=== PATIENT | female | born 1955 | race Caucasian/White ===

== ENCOUNTER 2016-11-17 15:38 | Emergency (ER) | payer MEDICAID ==
--- NOTE | 2016-11-17 16:19 | ED Physician Chart ---
Chief Complaint/HPI - Patient Information Date Seen:: 11/17/16 Time Seen:: 15:46 Chief Complaint:: Toothache for 4 days. History of Present Illness:: L lower toothache for 4 days. Pt has pending dental appointment at [facility] on 11/19/16. No fever. Taking po well without N/V/D. Allergies:: Allergies Allergy/AdvReac Type Severity Reaction Status Date / Time No Known Allergies Allergy Verified 11/17/16 16:06 Vitals:: Vital Signs - 8 hr 11/17/16 16:08 Temp 98.8 F HR 105 RR 18 BP 147/89 O2 Sat % 96 Historian:: Patient Family MD/PCP:: Unknown LMP:: Postmenopausal. Review:: Nurse's Note Reviewed Review of Systems - Review of Systems General/Constitutional: No fever, No chills, No weight loss, No weakness, No diaphoresis, No edema, No loss of appetite Skin: No skin lesions, No rash, No bruising Head: No headache, No light-headedness Eyes: No loss of vision, No pain, No diplopia ENT: No earache, No nasal drainage, No sore throat, No tinnitus, Other ( Toothache, see HPI.) Neck: No neck pain, No swelling, No thyromegaly, No stiffness, No mass noted Cardio Vascular: No chest pain, No palpitations, No PND, No orthopnea, No edema Pulmonary: No SOB, No cough, No sputum, No wheezing GI: No nausea, No vomiting, No diarrhea, No pain, No melena, No hematochezia, No constipation, No hematemesis G/U: No dysuria, No frequency, No hematuria Musculoskeletal: No bone or joint pain, No back pain, No muscle pain Endocrine: No polyuria, No polydipsia Psychiatric: No prior psych history Past Medical History - Past Medical History Past Medical History: No significant medical hx Family History: None Social History: Non Smoker, No Alcohol, No Drug Use, Legally, Employed , Other (lives with a friend.) Employment:: investigative agent. Surgical History: None Psychiatricy History: None Medication: Reviewed Physical Exam - Physical Examination General/Constitutional: Awake, Well-developed, well-nourished, Alert, No distress, GCS 15, Non-toxic appearing, Ambulatory Other Gen/Cons comments:: Breathes comfortably, speaks clearly, and ambulates without difficulty. Head: Atraumatic Eyes: Lids, conjuctiva normal, PERRL, EOMI Skin: Nl inspection, No rash, No skin lesions, No ecchymosis, Well hydrated, No lymphadenopathy ENMT: External ears, nose nl, TM canals nl, Nasal exam nl, Oropharynx nl, Tonsils nl Other ENMT comments:: Tenderness at 2nd molar tooth at left lower jaw with loss of height and discoloration c/w dental decay. Neck: Nontender, Full ROM w/o pain, No JVD, No nuchal rigidity, No mass, No stridor Respiratory: Nl effort/Exclusion, Clear to Auscultation, No Wheeze/Rhonchi/Rales Cardio Vascular: RRR (with VR 96), No murmur, gallop, rubs, NL S1 S2 Extremities: No edema Neuro/Psych: Alert/oriented (oriented x 3.), Normal sensory exam, Judgement/ insight normal, Mood normal, Normal gait, No focal deficits ED Septic Shock - . Is Septic Shock (SBP<90, OR Lactate>4 mmol\L) present?: No - <6hrs of presentation: Vital Signs: Vital Signs - 8 hr 11/17/16 16:08 Temp 98.8 F HR 105 RR 18 BP 147/89 O2 Sat % 96 Reassessment (Disposition) - Reassessment Reassessment:: 1632 Pt remains stable. Pt requests to go home now and prefers to take her medications at home. Aftercare instructions given. - Diagnosis Diagnosis:: Toothache due to dental decay, pulpitis, stable - Aftercare/Follow up Instructions Aftercare/Follow-Up Instructions:: Refer to Discharge Instructions Notes:: Avoid extreme hot or cold food or beverage. Increase oral fluid. May take Motrin 200 mg tab 4 tabs po q8h prn pain. Drowsiness precautions given with the use of Tylenol #3 Pt has been instructed not to take any acetaminophen containing medications such as Tylenol with the use of Tylenol #3. F/U with her dentist at [facility] in one day for further evaluation/treatment. Return to ER immediately if condition worsens or if any further questions/problems. Medication Prescribed:: Amoxicillin 500 mg tab one tab po q8h for 10 days. D-30 R-0 Tylenol #3 one tab po q6h prn severe pain only. D-10 R-0 - Patient Disposition Discharge/Transfer:: Home Time:: 16:40 Condition at Disposition:: Stable
== END 2016-11-17 16:45 | disposition home or self-care (01) ==
LOC: ER 15:38
DX: K02.9 Dental caries, unspecified (principal)
CPT/HCPCS: Z7502